=== PATIENT | male | born 1990 | race Caucasian/White ===

== ENCOUNTER 2016-07-03 22:09 | Emergency (ER) | payer SELFPAY ==
--- NOTE | 2016-07-04 00:21 | ED NURSING NOTES ---
Clinical Report - Nurses [facility] [address] [place] [address] 07/03/2016 22:11 Patient: MAHENDRA HERNANDES TRIAGE Triage time 22:15 Jul 03 2016. Chief Complaint: SPIDER BITE (to left groin, x 2 days "I saw the spider, I am staying in my dads trailer"). Alert. No acute distress. SEPSIS SCREEN: Sepsis Screen. Negative (no infection suspected/documented). MK COMA SCORE: Mk Coma Scale: 15- eyes open spontaneously (4); best verbal response- oriented x 4 (5); best motor response- obeys commands (6). --22:21 Kevin Seymour R.N. 22:15 07/03/16. BP: 114/58. HR: 66. RR: 15. O2 saturation: 100%. Temp: 97.7 F. Pain level now: 09/03. --22:21 Kevin Seymour R.N. Weight: 70.3 kg stated. Height/Length: 72 inches Per Patient. BMI: 21. --22:18 Kevin Seymour R.N. Medications None. --22:16 Kevin Seymour R.N. Medication/allergy information source: the patient. --22:21 Kevin Seymour R.N. Allergies Sulfa Antibiotics. --22:16 Kevin Seymour R.N. History Arrived by private vehicle. Historian: patient. This occurred (2 days ago). Treatment WRAPPER COUNTER: None. PAST MEDICAL HX: Tetanus status: up-to-date. Immunizations: up-to-date. SOCIAL HX: Heavy tobacco smoker (cigarette)- less than 1 pack per day. History of heavy IV drug use: heroin. Recently used drugs just prior to arrival. Under influence in ED. No alcohol use. No infectious disease exposure. ABUSE ASSESSMENT: No report of abuse. SELF HARM ASSESSMENT: A self harm assessment was performed. The patient answered "no" to the question "Have you recently felt down, depressed, or hopeless?", "Have you noticed less interest or pleasure in doing things?", "Do you have thoughts of harming or killing yourself?", "Are you here because you tried to hurt yourself?", "Have you ever tried to hurt yourself before today?", "Have you recently had thoughts about harming or killing others?" and "Do you have any dangerous items in your possession?". FALL RISK ASSESSMENT: Fall risk assessment completed. No fall risk identified. NUTRITIONAL RISK ASSESSMENT: The nutritional risk assessment revealed no deficiencies. LEARNING NEEDS ASSESSMENT: The learning needs assessment revealed no barriers. SKIN INTEGRITY ASSESSMENT: Skin integrity risk assessment completed. No skin integrity risk identified. --22:21 Kevin Seymour R.N. PROBLEMS: Hepatitis C antibody measurement. Asthma. Cellulitis. --22:18 Kevin Seymour R.N. ADDITIONAL SURGERIES: Abscess to neck. --22:18 Kevin Seymour R.N. Interventions ID band on patient. To treatment room. --22:21 Kevin Seymour R.N. PHYSICAL ASSESSMENT Ambulatory to room. Patient gowned. GENERAL / NEURO / PSYCH: Alert. Oriented X 4. Appears in no acute distress. HEENT: Pupils equal, round and reactive to light. RESPIRATORY: Respirations not labored. Breath sounds within normal limits. CVS: Pulses within normal limits. Capillary refill less than 2 seconds. GI / : Abdomen soft and nontender. EXTREMITIES: Extremities exhibit normal ROM. Neuro-vascular status intact to the extremity. Left hip: of the anterior aspect of the hip ("spider bite" to left groin). SKIN: Skin is warm and dry. --22:22 Kevin Seymour R.N. NURSING PROGRESS NOTES Patient identifiers checked. Call light placed in reach. Side rails up x 1. Bed placed in lowest position. Brakes of bed on. Patient ready for evaluation- chart flagged. --22:22 Kevin Seymour R.N. Patient waiting for evaluation. ( pt watching tv- warm blanket provided for comfort, waiting MD vee). --22:54 Kevin Seymour R.N. 00:31 07/04/2016 Clindamycin PO 300 mg given. Allergies verified and confirmed 5 rights. --00:36 Kevin Seymour R.N. ( pt provided jessi crackers and milk to take with atbx.). --00:36 Kevin Seymour R.N. DISPOSITION / DISCHARGE Departure time: 6. Condition at departure: unchanged. No learning barriers present. Discharge instructions provided and reviewed with the patient. Reviewed medication(s) side effects and course information. Prescription(s) given to the patient. Patient verbalized understanding. Written instructions provided in Turkish. The patient was discharged by the physician. He was discharged home and accompanied by parent. He left the Emergency Department ambulatory and via private vehicle. Parent driving. ( pt dc home ambulatory, given rx and f/u. pt reports "I'm trying to get in to detox" pt enc to do so.). --00:39 Kevin Seymour R.N. 00:37 07/04/16. BP: 109/61. HR: 62. RR: 15. O2 saturation: 100%. Temp: 97.9 F. Pain level now: 09/03. --00:39 Kevin Seymour R.N. Locked/Released at 07/04/2016 0:40 by Kevin Seymour R.N.
--- NOTE | 2016-07-04 00:21 | ED CLINICAL REPORT ---
Clinical Report - Physicians/Mid Levels [facility] [address] [place] [address] 07/03/2016 22:11 Patient: MAHENDRA HERNANDES Time Seen: 00:20. Arrived- By private vehicle. Historian- patient. HISTORY OF PRESENT ILLNESS Chief Complaint: LESION. This started several days ago and is still present. It was gradual in onset and has been constant. It is described as painful. It has been located on the left thigh. A possible cause has been identified. He had a recent insect bite. Similar symptoms previously: Several times. REVIEW OF SYSTEMS No chills, fever, sweats, calf pain or chest pain. No cough, difficulty breathing, pedal edema, palpitations or abdominal pain. No constipation, diarrhea, nausea, vomiting or urinary problems. All systems otherwise negative, except as recorded above. PAST HISTORY Problems: Hepatitis C antibody measurement. Asthma. Cellulitis. Additional Surgeries: Abscess to neck. Medications: None. Allergies: Sulfa Antibiotics. SOCIAL HISTORY Current every day heavy tobacco smoker (cigarette)- less than 1 pack per day. History of heavy IV drug use: heroin. Recently used drugs just prior to arrival. Under influence in ED. No alcohol use. FAMILY HISTORY No significant family medical history. ADDITIONAL NOTES The nursing notes have been reviewed. PHYSICAL EXAM Vital Signs: 07/03/2016 22:15 BP: 114/58. HR: 66. RR: 15. O2 saturation: 100%. Temp: 97.7 F. Pain level now: 7/10. Have been reviewed. Appearance: Alert. Eyes: Pupils equal, round and reactive to light. ENT: Pharynx normal. Neck: Neck supple. CVS: Normal heart rate and rhythm. Heart sounds normal. Respiratory: No respiratory distress. Breath sounds normal. Abdomen: Nontender. No organomegaly. Skin: Small area of cellulitis with tenderness, erythema and warmth (small central area of excoriation). Extremities: Normal external inspection. Extremities nontender. No calf tenderness. PROGRESS AND PROCEDURES Course of Care: Patient is stable. Patient/family counseled. Old medical records reviewed. Disposition: Discharged. Condition: stable. CLINICAL IMPRESSION Cellulitis of the left thigh. INSTRUCTIONS Warnings: Further evaluation is necessary. GENERAL WARNINGS: Return or contact your physician immediately if your condition worsens or changes unexpectedly, if not improving as expected, or if other problems arise. Prescription Medications: Clindamycin 300 mg: take 1 capsule orally for 10 days. No refill. Understanding of the discharge instructions verbalized by patient. Follow-up with: [facility], , , [address], [facility], [address] Follow up tomorrow. Call for an appointment. (Electronically signed by Leobardo Hill MD 07/04/2016 9:53)
--- NOTE | 2016-07-04 00:21 | ED CLINICAL REPORT ---
Clinical Report - Physicians/Mid Levels [facility] [address] [place] [address] 07/03/2016 22:11 Patient: MAHENDRA HERNANDES Time Seen: 00:20. Arrived- By private vehicle. Historian- patient. HISTORY OF PRESENT ILLNESS Chief Complaint: LESION. This started several days ago and is still present. It was gradual in onset and has been constant. It is described as painful. It has been located on the left thigh. A possible cause has been identified. He had a recent insect bite. Similar symptoms previously: Several times. REVIEW OF SYSTEMS No chills, fever, sweats, calf pain or chest pain. No cough, difficulty breathing, pedal edema, palpitations or abdominal pain. No constipation, diarrhea, nausea, vomiting or urinary problems. All systems otherwise negative, except as recorded above. PAST HISTORY Problems: Hepatitis C antibody measurement. Asthma. Cellulitis. Additional Surgeries: Abscess to neck. Medications: None. Allergies: Sulfa Antibiotics. SOCIAL HISTORY Current every day heavy tobacco smoker (cigarette)- less than 1 pack per day. History of heavy IV drug use: heroin. Recently used drugs just prior to arrival. Under influence in ED. No alcohol use. FAMILY HISTORY No significant family medical history. ADDITIONAL NOTES The nursing notes have been reviewed. PHYSICAL EXAM Vital Signs: 07/03/2016 22:15 BP: 114/58. HR: 66. RR: 15. O2 saturation: 100%. Temp: 97.7 F. Pain level now: 7/10. Have been reviewed. Appearance: Alert. Eyes: Pupils equal, round and reactive to light. ENT: Pharynx normal. Neck: Neck supple. CVS: Normal heart rate and rhythm. Heart sounds normal. Respiratory: No respiratory distress. Breath sounds normal. Abdomen: Nontender. No organomegaly. Skin: Small area of cellulitis with tenderness, erythema and warmth (small central area of excoriation). Extremities: Normal external inspection. Extremities nontender. No calf tenderness. PROGRESS AND PROCEDURES Course of Care: Patient is stable. Patient/family counseled. Old medical records reviewed. Disposition: Discharged. Condition: stable. CLINICAL IMPRESSION Cellulitis of the left thigh. INSTRUCTIONS Warnings: Further evaluation is necessary. GENERAL WARNINGS: Return or contact your physician immediately if your condition worsens or changes unexpectedly, if not improving as expected, or if other problems arise. Prescription Medications: Clindamycin 300 mg: take 1 capsule orally for 10 days. No refill. Understanding of the discharge instructions verbalized by patient. Follow-up with: [facility], , , [address], [facility], [address] Follow up tomorrow. Call for an appointment. (Electronically signed by Leobardo Hill MD 07/04/2016 9:53)
--- NOTE | 2016-07-04 00:22 | ED ORDER SUMMARY ---
..... Patient: MAHENDRA HERNANDES OrderSheet [facility] VisitID: [id number] [address] [place] [place] [address] 25y, M Registration Date/Time: 07/03/2016 ORDER SHEET Weight: 70.3 kg (stated) Allergies: Sulfa Antibiotics GENERAL ORDERS: MEDICATION ORDERS: Clindamycin PO 300 mg (NOW) (00:21 07/04/2016 Romina BUCIO) (Ack 0:25 KPage-Kureginan R.N.) (0:36 KPage-Michaeln R.N.) IV FLUIDS: ORDER SHEET NOTES: [Electronically signed by Kevin Seymour R.N. (00:40 07/04/2016)] [Electronically signed by Leobardo Hill MD (09:53 07/04/2016)] [Electronically locked/signed by Kevin Seymour R.N. (00:40 07/04/2016)]
--- NOTE | 2016-07-04 00:22 | ED ORDER SUMMARY ---
..... Patient: MAHENDRA HERNANDES OrderSheet [facility] VisitID: [id number] [address] [place] [place] [address] 25y, M Registration Date/Time: 07/03/2016 ORDER SHEET Weight: 70.3 kg (stated) Allergies: Sulfa Antibiotics GENERAL ORDERS: MEDICATION ORDERS: Clindamycin PO 300 mg (NOW) (00:21 07/04/2016 Romina BUCIO) (Ack 0:25 KPage-Kureginan R.N.) (0:36 KPage-Michaeln R.N.) IV FLUIDS: ORDER SHEET NOTES: [Electronically signed by Kevin Seymour R.N. (00:40 07/04/2016)] [Electronically signed by Leobardo Hill MD (09:53 07/04/2016)] [Electronically locked/signed by Kevin Seymour R.N. (00:40 07/04/2016)]
--- NOTE | 2016-07-04 09:53 | ED MAR SUMMARY ---
..... Medication Administration Record [facility] [address] [place] [address] Patient: MAHENDRA HERNANDES Visit ID: [id number] 25y, M Weight: 70.3 kg Height/Length: 72 in BMI: 21 ALLERGIES: Sulfa Antibiotics Given 00:31 07/04/2016 Kevin Seymour R.N. Medication Administered: CLINDAMYCIN [PO], Dose: 300 mg PO. Medication Ordered: Clindamycin PO 300 mg (NOW).
--- NOTE | 2016-07-04 09:53 | ED DISCHARGE INSTRUCTIONS ---
Patient: MAHENDRA HERNANDES General Instructions [facility] VisitID: [id number] [address] [place] [address] 25y, M Registration Date/Time: 07/03/2016 Cellulitis of the left thigh. INSTRUCTIONS Warnings: Further evaluation is necessary. GENERAL WARNINGS: Return or contact your physician immediately if your condition worsens or changes unexpectedly, if not improving as expected, or if other problems arise. Prescription Medications: Clindamycin 300 mg: take 1 capsule orally for 10 days. No refill. Understanding of the discharge instructions verbalized by patient. Follow-up with: [facility], , , [address], , [place], [address] Follow up tomorrow. Call for an appointment. ADDITIONAL INFORMATION Cellulitis You have an infection of the skin known as cellulitis. This usually starts with a scrape, cut, insect bite, blister or other opening in the skin which becomes infected. This is a serious condition. It must be watched closely to be sure the infection is not spreading. With antibiotic treatment, the size of the red area will gradually shrink in size until the skin returns to normal. This will take 7-10 days. The red area should never increase in size once the antibiotic medicine has been started. Occasionally, an infection will be resistant to one antibiotic and another one will have to be used. Home Care: 1) Limit the use of the affected part, since excess movement can cause the infection to spread. 2) If the infection is on your leg, walk as little as possible during the first few days of the treatment. Keep your leg elevated while sitting. This will reduce swelling. 3) Take all of the antibiotic medicine exactly as directed until it is gone. Be careful not to miss any doses, especially during the first seven days. Follow Up with your doctor or this facility as directed. Check the infected area daily for the warning signs listed below. Get Prompt Medical Attention if any of the following occur: -- Spreading area of redness -- Increasing swelling or pain -- Appearance of pus or drainage -- Fever over 100.4 F (38.0 C) oral, or over 101.4 F (38.6 C) rectal, after two days on antibiotics Clindamycin Hydrochloride Oral capsule What is this medicine? CLINDAMYCIN (MICHELLE Sexton) is a lincosamide antibiotic. It is used to treat certain kinds of bacterial infections. It will not work for colds, flu, or other viral infections. How should I use this medicine? Take this medicine by mouth with a full glass of water. Follow the directions on the prescription label. You can take this medicine with food or on an empty stomach. If the medicine upsets your stomach, take it with food. Take your medicine at regular intervals. Do not take your medicine more often than directed. Take all of your medicine as directed even if you think your are better. Do not skip doses or stop your medicine early. Talk to your staff air defense officer regarding the use of this medicine in children. Special care may be needed. What side effects may I notice from receiving this medicine? Side effects that you should report to your doctor or health care transitions nurse as soon as possible: allergic reactions like skin rash, itching or hives, swelling of the face, lips, or tongue dark urine pain on swallowing redness, blistering, peeling or loosening of the skin, including inside the mouth unusual bleeding or bruising unusually weak or tired yellowing of eyes or skin Side effects that usually do not require medical attention (report to your doctor or health care transitions nurse if they continue or are bothersome): diarrhea itching in the rectal or genital area joint pain nausea, vomiting stomach pain What may interact with this medicine? chloramphenicol erythromycin kaolin products What if I miss a dose? If you miss a dose, take it as soon as you can. If it is almost time for your next dose, take only that dose. Do not take double or extra doses. Where should I keep my medicine? Keep out of the reach of children. Store at room temperature between 20 and 25 degrees C (68 and 77 degrees F). Throw away any unused medicine after the expiration date. What should I tell my health care provider before I take this medicine? They need to know if you have any of these conditions: kidney disease liver disease stomach problems like colitis an unusual or allergic reaction to clindamycin, lincomycin, or other medicines, foods, dyes like tartrazine or preservatives or trying to get breast-feeding What should I watch for while using this medicine? Tell your doctor or healthcare professional if your symptoms do not start to get better or if they get worse. Do not treat diarrhea with over the counter products. Contact your doctor if you have diarrhea that lasts more than 2 days or if it is severe and watery. You have been given the following additional information: Cellulitis Clindamycin Hydrochloride Oral capsule (Electronically signed by Leobardo Hill MD 07/04/2016 9:53)
--- NOTE | 2016-07-04 09:53 | ED MED RECONCILIATION SUMMARY ---
Patient: MAHENDRA HERNANDES Medication Reconciliation Report [facility] VisitID: [id number] [address] [place] [address] 25y, M Registration Date/Time: 07/03/2016 Weight: 70.3 kg Height/Length: 72 in. BMI: 21.0 ALLERGIES: Sulfa Antibiotics The patient's Home Medications are listed below: NONE. The source(s) of the original Home Medication information: patient The following Medications were given to the patient in the Emergency Department: Clindamycin [PO] PO 300 mg, administered: 07/04/2016 12:31:00 AM The following Medications were prescribed to the patient: Clindamycin 300 mg: take 1 capsule orally for 10 days. No refill. -- Leobardo Hill MD
--- NOTE | 2016-07-04 09:53 | ED MED RECONCILIATION SUMMARY ---
Patient: MAHENDRA HERNANDES Medication Reconciliation Report [facility] VisitID: [id number] [address] [place] [address] 25y, M Registration Date/Time: 07/03/2016 Weight: 70.3 kg Height/Length: 72 in. BMI: 21.0 ALLERGIES: Sulfa Antibiotics The patient's Home Medications are listed below: NONE. The source(s) of the original Home Medication information: patient The following Medications were given to the patient in the Emergency Department: Clindamycin [PO] PO 300 mg, administered: 07/04/2016 12:31:00 AM The following Medications were prescribed to the patient: Clindamycin 300 mg: take 1 capsule orally for 10 days. No refill. -- Leobardo Hill MD
--- NOTE | 2016-07-04 09:53 | ED DISCHARGE INSTRUCTIONS ---
Patient: MAHENDRA HERNANDES General Instructions [facility] VisitID: [id number] [address] [place] [address] 25y, M Registration Date/Time: 07/03/2016 Cellulitis of the left thigh. INSTRUCTIONS Warnings: Further evaluation is necessary. GENERAL WARNINGS: Return or contact your physician immediately if your condition worsens or changes unexpectedly, if not improving as expected, or if other problems arise. Prescription Medications: Clindamycin 300 mg: take 1 capsule orally for 10 days. No refill. Understanding of the discharge instructions verbalized by patient. Follow-up with: [facility], , , [address], , [place], [address] Follow up tomorrow. Call for an appointment. ADDITIONAL INFORMATION Cellulitis You have an infection of the skin known as cellulitis. This usually starts with a scrape, cut, insect bite, blister or other opening in the skin which becomes infected. This is a serious condition. It must be watched closely to be sure the infection is not spreading. With antibiotic treatment, the size of the red area will gradually shrink in size until the skin returns to normal. This will take 7-10 days. The red area should never increase in size once the antibiotic medicine has been started. Occasionally, an infection will be resistant to one antibiotic and another one will have to be used. Home Care: 1) Limit the use of the affected part, since excess movement can cause the infection to spread. 2) If the infection is on your leg, walk as little as possible during the first few days of the treatment. Keep your leg elevated while sitting. This will reduce swelling. 3) Take all of the antibiotic medicine exactly as directed until it is gone. Be careful not to miss any doses, especially during the first seven days. Follow Up with your doctor or this facility as directed. Check the infected area daily for the warning signs listed below. Get Prompt Medical Attention if any of the following occur: -- Spreading area of redness -- Increasing swelling or pain -- Appearance of pus or drainage -- Fever over 100.4 F (38.0 C) oral, or over 101.4 F (38.6 C) rectal, after two days on antibiotics Clindamycin Hydrochloride Oral capsule What is this medicine? CLINDAMYCIN (MICHELLE Sexton) is a lincosamide antibiotic. It is used to treat certain kinds of bacterial infections. It will not work for colds, flu, or other viral infections. How should I use this medicine? Take this medicine by mouth with a full glass of water. Follow the directions on the prescription label. You can take this medicine with food or on an empty stomach. If the medicine upsets your stomach, take it with food. Take your medicine at regular intervals. Do not take your medicine more often than directed. Take all of your medicine as directed even if you think your are better. Do not skip doses or stop your medicine early. Talk to your director of extension work regarding the use of this medicine in children. Special care may be needed. What side effects may I notice from receiving this medicine? Side effects that you should report to your doctor or health transitions rn care coordinator as soon as possible: allergic reactions like skin rash, itching or hives, swelling of the face, lips, or tongue dark urine pain on swallowing redness, blistering, peeling or loosening of the skin, including inside the mouth unusual bleeding or bruising unusually weak or tired yellowing of eyes or skin Side effects that usually do not require medical attention (report to your doctor or health transitions rn care coordinator if they continue or are bothersome): diarrhea itching in the rectal or genital area joint pain nausea, vomiting stomach pain What may interact with this medicine? chloramphenicol erythromycin kaolin products What if I miss a dose? If you miss a dose, take it as soon as you can. If it is almost time for your next dose, take only that dose. Do not take double or extra doses. Where should I keep my medicine? Keep out of the reach of children. Store at room temperature between 20 and 25 degrees C (68 and 77 degrees F). Throw away any unused medicine after the expiration date. What should I tell my health care provider before I take this medicine? They need to know if you have any of these conditions: kidney disease liver disease stomach problems like colitis an unusual or allergic reaction to clindamycin, lincomycin, or other medicines, foods, dyes like tartrazine or preservatives or trying to get breast-feeding What should I watch for while using this medicine? Tell your doctor or healthcare professional if your symptoms do not start to get better or if they get worse. Do not treat diarrhea with over the counter products. Contact your doctor if you have diarrhea that lasts more than 2 days or if it is severe and watery. You have been given the following additional information: Cellulitis Clindamycin Hydrochloride Oral capsule (Electronically signed by Leoabrdo Hill MD 07/04/2016 9:53)
--- NOTE | 2016-07-04 09:53 | ED MAR SUMMARY ---
..... Medication Administration Record [facility] [address] [place] [address] Patient: MAHENDRA HERNANDES Visit ID: [id number] 25y, M Weight: 70.3 kg Height/Length: 72 in BMI: 21 ALLERGIES: Sulfa Antibiotics Given 00:31 07/04/2016 Kevin Seymour R.N. Medication Administered: CLINDAMYCIN [PO], Dose: 300 mg PO. Medication Ordered: Clindamycin PO 300 mg (NOW).
== END 2016-07-04 00:36 | disposition home or self-care (01) ==
LOC: ED SRH 22:09
DX: L03.116 Cellulitis of left lower limb (principal); F17.210 Nicotine dependence, cigarettes, uncomplicated; F11.90 Opioid use, unspecified, uncomplicated; Z88.1 Allergy status to other antibiotic agents